=== PATIENT | female | born 1970 | race Caucasian/White ===

== ENCOUNTER 2017-12-17 07:54 | Emergency (ER) | payer OTHER ==
[~2017-12-17] VITALS: Ht 162.6 cm; Wt 82.6 kg
--- NOTE | ~2017-12-17 | EKG ---
[place] [address] [facility] [place] [address] ELECTROCARDIOGRAM REPORT Name: JOJO GOLDSTEINNIE Nabeel Room #: [facility].#: [id number] Admission: Attend Phys: Discharge: Date of : 74 Report #: [id number] THIS REPORT FOR: //name// [facility] ED Test Date: 2017-12-17 Test Time: 08:02:35 Pat Name: BAKARI GOLDSTEIN Department: Room: Gender: F [employer]er: [facility] : 1970 Requested By: Cal De La Cruz Order Number: [id number] MD: Yamil Ricardo Measurements Intervals [place] Rate: 91 P: 28 TX: 137 QRS: -24 QRSD: 102 T: -7 QT: 358 QTc: 441 Interpretive Statements Sinus rhythm Abnormal R-wave progression, early transition Borderline T abnormalities Compared to ECG 03/03/2010 12:44:06 Nonspecific change in the T wave abnormality Electronically Signed On 12-17-2017 8:41:57 CDT by Yamil Ricardo [email or web address] <ELECTRONICALLY SIGNED> By: Yamil Ricardo MD, [facility] 12/17/17 0841 1 1 Yamil Ricardo MD, FACC /EPI
[~2017-12-17 07:54] MED LIST: MEDROL DOSPAK21 TA1 PO; NAPROSYN500 MG PO; NORCO 5-325 TA1 EACH PO
[2017-12-17] MEDS ORDERED: METOPROLOL TART25 MG PO (08:07)
[2017-12-17 08:41] LABS: ABSOLUTE NEUTROPHILS 3.8 thou/uL (1.4-8.2); ANION GAP 8 mmol/L (7-16); BASOPHILS 0.6 % (0.0-2.0); BUN 15 mg/dL (7-18); CHLORIDE 104 mmol/L (98-107); CO2 27 mmol/L (21-32); CREATININE 0.7 mg/dL (0.6-1.0); EOSINOPHILS 3.5 % (0.0-3.0); GLUCOSE 93 mg/dL (74-106); HEMATOCRIT 37.6 % (37.0-47.0); HEMOGLOBIN 13.1 gm/dL (12.0-15.0); MCH 32.4 pg (26.0-34.0); MCHC 34.9 g/dL (28.0-37.0); MCV 92.9 fL (80.0-100.0); MONOCYTES 7.9 % (1.0-8.0); PLATELET COUNT 222 thou/uL (150-400); POTASSIUM 4.2 mmol/L (3.5-5.1); RBC 4.05 mil/uL (4.20-5.00); RDW 13.9 % (10.5-14.5); SODIUM 139 mmol/L (136-145); WBC 5.4 thou/uL (4.0-11.0)
[2017-12-17 08:50] LABS: TROPONIN-I <0.06 ng/mL (<0.06)
[2017-12-17 09:26] VITALS: BP 103/69
== END 2017-12-17 09:27 | disposition home or self-care (01) ==
LOC: ER 07:54
PROVIDERS: Emergency Medicine
DX: R00.2 Palpitations (principal); I10 Essential (primary) hypertension; Z87.891 Personal history of nicotine dependence